=== PATIENT | female | born 1990 | race Caucasian/White ===

== ENCOUNTER 2016-04-24 20:55 | Observation (INO) | payer BC ==
[~2016-04-24] VITALS: Ht 157.5 cm; Wt 122.5 kg
[2016-04-25] MEDS ORDERED: ONDANSETRON 4 MG VIAL ONE (00:42)
[2016-04-25] MEDS ORDERED: SODIUM CHLORIDE 0.9% 1,000 ML ONE (00:43)
[2016-04-25] MEDS ORDERED: SODIUM CHLORIDE 0.9% 250 ML IV ONE (01:19)
[2016-04-25] MEDS ORDERED: PIPER/TAZO 3.375 GM PYXIS ONE (01:19)
[2016-04-25] MEDS ORDERED: SALINE FLUSH 10 ML FLUSH PRN (03:10)
[2016-04-25] MEDS ORDERED: SODIUM CHLORIDE 0.9% 1,000 ML IV SCH (03:10)
[2016-04-25] MEDS ORDERED: DILAUDID 1 MG/ML AMP IV PRN (03:10)
[2016-04-25] MEDS ORDERED: ONDANSETRON 4 MG VIAL IV PRN (03:10)
[2016-04-25] MEDS ORDERED: KCL 20 MEQ/15 ML UDC PO ONE (03:20)
[2016-04-25 04:24] VITALS: Ht 157.5 cm; Wt 122.5 kg
[2016-04-25] MEDS ORDERED: SODIUM CHLORIDE 0.9% FLUSH BAG 500 ML IV SCH (06:00)
[2016-04-25] MEDS ORDERED: FAMOTIDINE 20 MG INJ IV SCH (08:00)
[2016-04-25] MEDS ORDERED: SALINE FLUSH 10 ML FLUSH SCH (08:00)
[2016-04-25] MEDS ORDERED: CEFTRIAXONE 1 GM in SODIUM CHLORIDE 0.9% 50 ML IV SCH (09:00)
== END 2016-04-25 04:50 | disposition other institution (70) ==
LOC: ENRESERV → ENRESERVTM → ENRESERVDT → ER 20:55 → EMR 20:56 → UNDOADMOB 04-25 03:08 → LD 04-25 03:51
PROVIDERS: ADMIT Obstetrics & Gynecology; ATTEND Obstetrics & Gynecology
CPT/HCPCS: 36415; 76705; 80053; 81001; 82150; 83690; 84702; 84703; 85025; 86677; 87088; 96361; 96365; 96375; 99213